=== PATIENT | male | born 2000 | race African-American/Black ===

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

== ENCOUNTER 2018-02-12 18:56 | Emergency (ER) | payer OTHER ==
[~2018-02-12] VITALS: Ht 182.9 cm; Wt 75.3 kg
[2018-02-12 19:08] VITALS: BP 134/70
[2018-02-12] MEDS: IBUPROFEN 600 MG TABLET. PO ONE (19:50)
--- NOTE | 2018-02-13 00:32 | RAD ---
Three-view right third finger radiographs 02/12/2018 CLINICAL HISTORY: Injury to the right third finger with swelling. A PA digital radiograph of the right hand was obtained. Oblique and lateral digital radiographs of the right third finger were obtained. Soft tissue swelling is seen involving the proximal right third finger. No fracture or dislocation of the right third finger is seen. No radiopaque foreign body is noted. IMPRESSION: No fracture or dislocation of the right third finger is seen. Electronically signed by: Adolfo Trejo MD (02/13/2018 12:28 AM) [facility]
--- NOTE | 2018-02-13 23:17 | ED.ADGEN ---
Past History Past Medical History: No Pertinent History, Seizure Past Surgical History: No Surgical History Smoking: Non-smoker Alcohol Use: None Drug Use: None Adult General Chief Complaint Chief Complaint Right middle finger injury HPI HPI Patient is a 16-year-old right-handed -[place] male who presents with right middle finger injury. Patient states he was stabbed in the finger by a basketball earlier this afternoon. Ports tenderness swelling over proximal interphalangeal joint with pain on range of motion. No deformity or malalignment. No other acute complaints.[] Review of Systems Review of Systems All other systems were reviewed and found to be within normal limits, except as documented in this note. Current Medications Current Medications Current Medications Medications (Trade) Dose Ordered Sig/Tatyana Start Time Stop Time Status Last Admin Dose Admin Ibuprofen (Motrin) 600 mg 1X ONCE 02/12/18 20:00 02/12/18 20:01 DC 02/12/18 19:50 600 MG Allergies Allergies Allergies Coded Allergies Type Severity Reaction Last Updated Verified No Known Drug Allergies 07/05/14 No Physical Exam Physical Exam Constitutional: Well developed, well nourished, no acute distress, non-toxic appearance. [] Extremities: Right index finger, tenderness swelling noted over right proximal interphalangeal joint no deformity, malalignment.. [] Neurologic: Alert and oriented X 3, normal motor function, normal sensory function, no focal deficits noted. []] Current Patient Data Vital Signs Vital Signs Date Time Temp Pulse Resp B/P (MAP) Pulse Ox O2 Delivery O2 Flow Rate FiO2 02/12/18 19:08 98.1 80 16 96 Room Air EKG EKG [] Radiology/Procedures Radiology/Procedures [X-ray right fingers: No obvious displaced fracture.] Course & Med Decision Making Course & Med Decision Making Pertinent Labs and Imaging studies reviewed. (See chart for details) [Patient placed in splint for comfort. Recommend supportive care with PCP follow -up.] Final Impression Final Impression [#1 right middle finger injury] Nicolasa Disclaimer Dragon Disclaimer This electronic medical record was generated, in whole or in part, using a voice recognition dictation system. CONCHA GARCIA DO Feb 13, 2018 23:17
== END 2018-02-12 19:43 | disposition home or self-care (01) ==
LOC: ER 18:56
DX: S69.91XA Unspecified injury of right wrist, hand and finger(s), initial encounter (principal); W26.8XXA Contact with other sharp object(s), not elsewhere classified, initial encounter; Y93.67 Activity, basketball; Y92.89 Other specified places as the place of occurrence of the external cause; Y99.8 Other external cause status
CPT/HCPCS: 29130; 73140; 99283

== ENCOUNTER 2018-03-11 11:01 | Emergency (ER) | payer OTHER ==
[~2018-03-11 11:01] MED LIST changes: +ALBU2.5V8 IH; -ALBU8.5H8 IH
[2018-03-11 11:18] VITALS: BP 116/83
[2018-03-11] MEDS ORDERED: IV NORMAL SALINE 1,000ML 1,000 ML IV SCH (11:19)
[2018-03-11] MEDS ORDERED: ONDANSETRON PF 4 MG/2 ML VIAL. IV ONE (11:30)
[2018-03-11 11:40] LABS: BASO % 0 % (0-3); EOS # 0.1 x10^3/uL (0.0-0.7); EOS % 1 % (0-3); HEMATOCRIT 49.1 % (39.0-53.0); HEMOGLOBIN 16.6 g/dL (13.0-17.5); LYMPH # 1.2 x10^3/uL (1.0-4.8); LYMPH % 13 % (24-48); MEAN CORPUSCULAR HEMOGLOBIN 30 pg (25-35); MEAN CORPUSCULAR HGB CONC 34 g/dL (31-37); MEAN CORPUSCULAR VOLUME 87 fL (79-100); MONO # 0.9 x10^3/uL (0.0-1.1); MONO % 10 % (0-9); NEUT # 6.8 x10^3uL (1.8-7.7); NEUT % 76 % (31-73); PLATELET COUNT 256 x10^3/uL (140-400); RED BLOOD COUNT 5.64 x10^6/uL (4.30-5.70); WHITE BLOOD COUNT 9.1 x10^3/uL (4.0-11.0)
[2018-03-11 11:58] LABS: ALBUMIN 4.5 g/dL (3.4-5.0); ALBUMIN/GLOBULIN RATIO 1.1 (1.0-1.7); CALCIUM 9.3 mg/dL (8.5-10.1); CREATININE 1.2 mg/dL (0.7-1.3); GFR 94.4; TOTAL BILIRUBIN 1.6 mg/dL (0.2-1.0); TOTAL PROTEIN 8.5 g/dL (6.4-8.2)
[2018-03-11] MEDS ORDERED: IOHEXOL 300 MG/ML 75 ML VIAL. IV ONE (12:30)
--- NOTE | 2018-03-11 12:55 | RAD ---
PQRS Compliance Statement: One or more of the following individualized dose reduction techniques were utilized for this examination: 1. Automated exposure control 2. Adjustment of the mA and/or kV according to patient size 3. Use of iterative reconstruction technique CT abdomen/pelvis with contrast 03/11/2018 12:27 PM INDICATION: Nausea, vomiting and generalized abdominal pain COMPARISON: None available TECHNIQUE: Multiple axial CT images of the abdomen and pelvis were obtained after the intravenous administration of Isovue-370. Coronal and sagittal reformats are provided. FINDINGS: Visualized portions of the lung bases are clear. Heart size is within normal limits. No suspicious hepatic masses are identified. Liver is homogeneous in enhancement. Spleen, bilateral adrenal glands, and pancreas are normal in appearance. Gallbladder is present without adjacent inflammatory changes. The abdominal aorta is normal in course and caliber. There are no pathologically enlarged lymph nodes in the abdomen and pelvis. There is no abdominal free fluid. There is no free intraperitoneal air. The abdominal aorta is normal in course and caliber. There are no pathologically enlarged lymph nodes in the abdomen and pelvis. There is no abdominal free fluid. There is no free intraperitoneal air. There are dilated small bowel loops measuring up to 3.4 cm. There are no differential air-fluid levels. There is no transition point identified. Dilated small bowel loops predominantly are noted within the proximal small bowel. Terminal ileum appears decompressed. The appendix is not definitively visualized due to the lack of intraperitoneal fat and oral contrast. Urinary bladder is within normal limits given degree of distention. No suspicious pelvic mass is identified. No suspicious osseous abnormality. IMPRESSION: 1. Dilated small bowel loops may represent ileus. No definite evidence for bowel obstruction. No definite transition point is visualized. Consideration may be given for an enteritis. 2. Appendix is not definitively visualized given the lack of intraperitoneal fat and oral contrast. No definite pericecal inflammatory changes are identified. There is persistent clinical concern, a dedicated CT pelvis may be obtained after the administration of oral contrast. Electronically signed by: Yessenia Sanders MD (03/11/2018 12:51 PM) [id number]
[2018-03-11] MEDS ORDERED: DIPH1TAB PO (13:46)
[2018-03-11] MEDS ORDERED: ONDA4TAB7 PO (13:46)
[2018-03-11] MEDS ORDERED: METR500T PO (13:50)
--- NOTE | 2018-03-11 13:50 | PHYS DOC ---
Past History Past Medical History: GERD Past Surgical History: No Surgical History Smoking: Non-smoker Alcohol Use: None Drug Use: None Adult General Chief Complaint Chief Complaint: ABDOMINAL PAIN HPI HPI Patient is a 17-year-old male who presents with complaint of lower abdominal pain with nausea and with diarrhea. Patient states he has not actually vomited. He states that he has had several watery stools since symptoms started yesterday. He denies any fever. Does indicate that his appetite has gone down and states the pain is worsened when he stands up straight. Patient states that nothing is improving his symptoms. Review of Systems Review of Systems Constitutional: Denies fever or chills [] Respiratory: Denies cough or shortness of breath [] Cardiovascular: No additional information not addressed in HPI [] GI: Complains of abdominal pain with nausea and diarrhea [] : Denies dysuria or hematuria [] Musculoskeletal: Denies back pain or joint pain [] All other systems were reviewed and found to be within normal limits, except as documented in this note. Current Medications Current Medications Current Medications Medications (Trade) Dose Ordered Sig/Tatyana Start Time Stop Time Status Last Admin Dose Admin Fentanyl Citrate (Fentanyl 2ml Vial) 25 mcg 1X ONCE 03/11/18 11:30 03/11/18 11:31 DC 03/11/18 11:38 25 MCG Iohexol (Omnipaque 300 Mg/ml) 75 ml 1X ONCE 03/11/18 12:30 03/11/18 12:31 DC 03/11/18 12:31 75 ML Ondansetron HCl (Zofran) 4 mg 1X ONCE 03/11/18 11:30 03/11/18 11:31 DC 03/11/18 11:38 4 MG Sodium Chloride 1,000 ml @ 1,000 mls/hr Q1H 03/11/18 11:19 03/11/18 12:19 DC 03/11/18 11:40 1,000 MLS/HR Allergies Allergies Allergies Coded Allergies Type Severity Reaction Last Updated Verified No Known Drug Allergies 07/05/14 No Physical Exam Physical Exam Constitutional: Well developed, well nourished, no acute distress, non-toxic appearance. [] HENT: Normocephalic, atraumatic, bilateral external ears normal, oropharynx moist, no oral exudates, nose normal. [] Eyes: PERRLA, EOMI, conjunctiva normal, no discharge. [] Neck: Normal range of motion, no tenderness, supple, no stridor. [] Cardiovascular: Regular rate and rhythm [] Lungs & Thorax: Bilateral breath sounds clear to auscultation [] Abdomen: Bowel sounds normal, soft, with lower abdominal tenderness, left greater than right. [] Skin: Warm, dry, no erythema, no rash. [] Extremities: No tenderness, no cyanosis, no clubbing, ROM intact, no edema. [] Neurologic: Alert and oriented X 3, normal motor function, normal sensory function, no focal deficits noted. [] Current Patient Data Vital Signs Vital Signs Date Time Temp Pulse Resp B/P (MAP) Pulse Ox O2 Delivery O2 Flow Rate FiO2 03/11/18 11:18 98.5 72 18 98 Room Air Lab Results Laboratory Tests Test 03/11/18 11:29 White Blood Count 9.1 x10^3/uL (4.0-11.0) Red Blood Count 5.64 x10^6/uL (4.30-5.70) Hemoglobin 16.6 g/dL (13.0-17.5) Hematocrit 49.1 % (39.0-53.0) Mean Corpuscular Volume 87 fL (79-100) Mean Corpuscular Hemoglobin 30 pg (25-35) Mean Corpuscular Hemoglobin Concent 34 g/dL (31-37) Red Cell Distribution Width 13.0 % (11.5-14.5) Platelet Count 256 x10^3/uL (140-400) Neutrophils (%) (Auto) 76 % (31-73) H Lymphocytes (%) (Auto) 13 % (24-48) L Monocytes (%) (Auto) 10 % (0-9) H Eosinophils (%) (Auto) 1 % (0-3) Basophils (%) (Auto) 0 % (0-3) Neutrophils # (Auto) 6.8 x10^3uL (1.8-7.7) Lymphocytes # (Auto) 1.2 x10^3/uL (1.0-4.8) Monocytes # (Auto) 0.9 x10^3/uL (0.0-1.1) Eosinophils # (Auto) 0.1 x10^3/uL (0.0-0.7) Basophils # (Auto) 0.0 x10^3/uL (0.0-0.2) Sodium Level 139 mmol/L (136-145) Potassium Level 4.0 mmol/L (3.5-5.1) Chloride Level 103 mmol/L (98-107) Carbon Dioxide Level 26 mmol/L (21-32) Anion Gap 10 (6-14) Blood Urea Nitrogen 15 mg/dL (8-26) Creatinine 1.2 mg/dL (0.7-1.3) Estimated GFR (Cockcroft-Gault) 94.4 BUN/Creatinine Ratio 13 (6-20) Glucose Level 89 mg/dL (70-99) Calcium Level 9.3 mg/dL (8.5-10.1) Total Bilirubin 1.6 mg/dL (0.2-1.0) H Aspartate Amino Transferase (AST) 12 U/L (15-37) L Alanine Aminotransferase (ALT) 17 U/L (16-63) Alkaline Phosphatase 120 U/L (46-116) H Total Protein 8.5 g/dL (6.4-8.2) H Albumin 4.5 g/dL (3.4-5.0) Albumin/Globulin Ratio 1.1 (1.0-1.7) Lipase 77 U/L (73-393) EKG EKG [] Radiology/Procedures Radiology/Procedures [] Impressions: PROCEDURE: CT ABD PELV W/ IV CONTRST ONLY PQRS Compliance Statement: One or more of the following individualized dose reduction techniques were utilized for this examination: 1. Automated exposure control 2. Adjustment of the mA and/or kV according to patient size 3. Use of iterative reconstruction technique CT abdomen/pelvis with contrast 03/11/2018 12:27 PM INDICATION: Nausea, vomiting and generalized abdominal pain COMPARISON: None available TECHNIQUE: Multiple axial CT images of the abdomen and pelvis were obtained after the intravenous administration of Isovue-370. Coronal and sagittal reformats are provided. FINDINGS: Visualized portions of the lung bases are clear. Heart size is within normal limits. No suspicious hepatic masses are identified. Liver is homogeneous in enhancement. Spleen, bilateral adrenal glands, and pancreas are normal in appearance. Gallbladder is present without adjacent inflammatory changes. The abdominal aorta is normal in course and caliber. There are no pathologically enlarged lymph nodes in the abdomen and pelvis. There is no abdominal free fluid. There is no free intraperitoneal air. The abdominal aorta is normal in course and caliber. There are no pathologically enlarged lymph nodes in the abdomen and pelvis. There is no abdominal free fluid. There is no free intraperitoneal air. There are dilated small bowel loops measuring up to 3.4 cm. There are no differential air-fluid levels. There is no transition point identified. Dilated small bowel loops predominantly are noted within the proximal small bowel. Terminal ileum appears decompressed. The appendix is not definitively visualized due to the lack of intraperitoneal fat and oral contrast. Urinary bladder is within normal limits given degree of distention. No suspicious pelvic mass is identified. No suspicious osseous abnormality. IMPRESSION: 1. Dilated small bowel loops may represent ileus. No definite evidence for bowel obstruction. No definite transition point is visualized. Consideration may be given for an enteritis. 2. Appendix is not definitively visualized given the lack of intraperitoneal fat and oral contrast. No definite pericecal inflammatory changes are identified. There is persistent clinical concern, a dedicated CT pelvis may be obtained after the administration of oral contrast. Electronically signed by: Yessenia Sanders MD (03/11/2018 12:51 PM) [id number] Course & Med Decision Making Course & Med Decision Making Pertinent Labs and Imaging studies reviewed. (See chart for details) [] Dragon Disclaimer Dragon Disclaimer This electronic medical record was generated, in whole or in part, using a voice recognition dictation system. Departure Departure: Impression: Primary Impression: Enteritis Disposition: 01 HOME, SELF-CARE Condition: STABLE Referrals: JOHN GIRON MD (PCP) Patient Instructions: Diarrhea Scripts Metronidazole (FLAGYL) 500 Mg Tablet 500 MG PO TID for infection, #30 TAB Prov: CHICHI KING Jr. DO 03/11/18 Diphenoxylate Hcl/Atropine (LOMOTIL TABLET) 1 Each Tablet 1 TAB PO TID PRN for DIARRHEA, #30 TAB Prov: CHICHI KING Jr. DO 03/11/18 Ondansetron Hcl (ZOFRAN) 4 Mg Tablet 1 TAB PO Q8HRS PRN for NAUSEA/VOMITING, #12 TAB Prov: CHICHI KING Jr. DO 03/11/18 CHICHI KING Jr. DO Mar 11, 2018 13:50
== END 2018-03-11 14:03 | disposition home or self-care (01) ==
LOC: ER 11:01
DX: K52.9 Noninfective gastroenteritis and colitis, unspecified (principal); K21.9 Gastro-esophageal reflux disease without esophagitis
CPT/HCPCS: 36415; 74177; 80053; 83690; 85025; 96361; 96374; 96375; 99284; J2405; J3010; Q9967; J7030

== ENCOUNTER 2018-11-12 21:24 | Emergency (ER) | payer OTHER ==
[~2018-11-12] VITALS: Ht 182.9 cm; Wt 78.2 kg
[~2018-11-12 21:24] MED LIST changes: +DIPH1TAB PO; +METR500T PO; +ONDA4TAB7 PO
--- NOTE | 2018-11-12 21:47 | PHYS DOC ---
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 no med comlpaints just needs work note to go [facility] to work Allergies Allergies Allergies Coded Allergies Type Severity Reaction Last Updated Verified No Known Drug Allergies 07/05/14 No Physical Exam Physical Exam Constitutional: Well developed, well nourished, no acute distress, non-toxic appearance. [] HENT: Normocephalic, atraumatic, bilateral external ears normal, oropharynx mois t, no oral exudates, nose normal. [] Eyes: PERRLA, EOMI, conjunctiva normal, no discharge. [] Neck: Normal range of motion, no tenderness, supple, no stridor. [] Cardiovascular:Heart rate regular rhythm, no murmur [] Lungs & Thorax: Bilateral breath sounds clear to auscultation [] Back: No tenderness, no CVA tenderness. [] Extremities: No tenderness, no cyanosis, no clubbing, ROM intact, no edema. [] Neurologic: Alert and oriented X 3, normal motor function, normal sensory function, no focal deficits noted. [] Psychologic: Affect normal, judgement normal, mood normal. [] Current Patient Data Vital Signs going out of state to moss picker son. states is not having any pain or medical problems currently. Distress * None Blood Pressure Systolic * 126 mm Hg (100-140) Blood Pressure Diastolic * 64 mm Hg (60-100) Blood Pressure Mean * 84 mm Hg Blood Pressure Location * Right Arm Blood Pressure Source * Automatic Cuff Pulse Rate * 74 beats per minute (60-90) Pulse Assessment Method * Monitor Respiratory Rate * 18 breaths per minute (12-24) Oxygen Delivery Method * Room Air Bedside Pulse Oximetry * 99 % Treatment Prior to Arrival * No Complaint of Pain * No LOC EKG EKG [] Radiology/Procedures Radiology/Procedures [] Course & Med Decision Making Course & Med Decision Making Pertinent Labs and Imaging studies reviewed. (See chart for details) [] Dragon Disclaimer Dragon Disclaimer This electronic medical record was generated, in whole or in part, using a voice recognition dictation system. Departure Departure: Impression: Primary Impression: Parenting problem Disposition: 01 HOME, SELF-CARE Condition: STABLE Additional Instructions: Thank you for coming to the emergency department. your blood pressure is normal everything is looking good you are free to go back to work anytime ZEV JONES MD Nov 12, 2018 21:47
== END 2018-11-12 21:47 | disposition home or self-care (01) ==
LOC: ER 21:24
DX: Z62.9 Problem related to upbringing, unspecified (principal); K21.9 Gastro-esophageal reflux disease without esophagitis
CPT/HCPCS: 99281

== ENCOUNTER 2019-04-16 00:19 | Emergency (ER) | payer OTHER ==
[~2019-04-16] VITALS: Ht 182.9 cm; Wt 78.2 kg
[2019-04-16] MEDS ORDERED: IV NORMAL SALINE 1,000ML 1,000 ML IV SCH (00:29)
[2019-04-16] MEDS ORDERED: ONDANSETRON PF 4 MG/2 ML VIAL. IVP ONE (00:30)
[2019-04-16] MEDS ORDERED: MORPHINE SULFATE 4 MG/ML DISP.SYRIN. IV/SQ PRN (00:30)
--- NOTE | 2019-04-16 00:32 | PHYS DOC ---
Past History Past Medical History: No Pertinent History Past Surgical History: No Surgical History Smoking: Non-smoker Alcohol Use: None Drug Use: None Adult General Chief Complaint Chief Complaint: ABDOMINAL PAIN HPI HPI Patient is a 18-year-old male who presents with complaint of lower abdominal pain that started earlier this morning. Patient states that pain is progressively gotten worse throughout the night. He rates pain at a 7 out of 10. He states he has been nauseated and has had a little bit of diarrhea. He denies any fever. He does indicate that he has decreased appetite. He states the pain is worsened with movement and walking. He states that nothing is improving his symptoms.[] Review of Systems Review of Systems Constitutional: Denies fever or chills [] Respiratory: Denies cough or shortness of breath [] Cardiovascular: No additional information not addressed in HPI [] GI: Complains of lower abdominal pain with nausea and diarrhea [] Integument: Denies rash or skin lesions [] Neurologic: Denies headache, focal weakness or sensory changes [] All other systems were reviewed and found to be within normal limits, except as documented in this note. Allergies Allergies Allergies Coded Allergies Type Severity Reaction Last Updated Verified No Known Drug Allergies 07/05/14 No Physical Exam Physical Exam Constitutional: Well developed, well nourished, no acute distress, non-toxic appearance. [] HENT: Normocephalic, atraumatic, bilateral external ears normal, oropharynx moist, no oral exudates, nose normal. [] Eyes: PERRLA, EOMI, conjunctiva normal, no discharge. [] Neck: Normal range of motion, no tenderness, supple, no stridor. [] Cardiovascular:Heart rate regular rhythm, no murmur [] Lungs & Thorax: Bilateral breath sounds clear to auscultation [] Abdomen: Bowel sounds normal, soft, with diffuse tenderness. [] Skin: Warm, dry, no erythema, no rash. [] Extremities: No tenderness, no cyanosis, no clubbing, ROM intact, no edema. [] Neurologic: Alert and oriented X 3, no focal deficits noted. [] Current Patient Data Vital Signs Vital Signs Date Time Temp Pulse Resp B/P (MAP) Pulse Ox O2 Delivery O2 Flow Rate FiO2 04/16/19 00:20 99.0 94 18 152/102 (119) 97 Room Air EKG EKG [] Radiology/Procedures Radiology/Procedures [] Impressions: PROCEDURE: CT ABD PELV W/ IV CONTRST ONLY EXAM: CT Abdomen and Pelvis with IV contrast CLINICAL HISTORY: Abdominal pain, nausea. COMPARISON: 03/11/2018 TECHNIQUE: Helical CT of the abdomen and pelvis was performed following the administration of intravenous contrast. Axial, coronal and sagittal reformatted images were generated. PQRS compliance statement - One or more of the following individualized dose reduction techniques were utilized for this study: 1. Automated exposure control 2. Adjustment of the mA and/or kV according to patient size 3. Use of iterative reconstruction technique FINDINGS: Lower chest: Lung bases are clear. Abdomen and Pelvis: Focal low-attenuation along the falx from ligament likely focal fatty infiltration. Gallbladder is normal. No biliary ductal dilatation. Spleen is unremarkable. Adrenal glands are normal. Pancreas is unremarkable. Symmetric nephrograms. No focal renal lesion. No hydronephrosis. No hydroureter. Bladder is unremarkable. No small or large bowel dilatation. No evidence for bowel obstruction. Moderate colonic stool content is seen. Distention of the stomach likely from recent injection. Appendix is normal. Prominent to borderline enlarged mesenteric lymph nodes are seen, possibly reactive. No abdominal pelvic ascites. Aorta is normal in caliber. Bones: No aggressive osseous lesion. IMPRESSION: 1. Focal low-attenuation along falciform ligament likely focal fatty infiltration. 2. No bowel obstruction. 3. Prominent to borderline enlarged mesenteric lymph nodes are seen, possibly reactive. Electronically signed by: Saqib Mark MD (04/16/2019 1:40 AM) [facility] Course & Med Decision Making Course & Med Decision Making Pertinent Labs and Imaging studies reviewed. (See chart for details) [] Dragon Disclaimer Dragon Disclaimer This electronic medical record was generated, in whole or in part, using a voice recognition dictation system. Departure Departure: Impression: Primary Impression: Abdominal pain, generalized Additional Impression: Mesenteric adenitis Disposition: 01 HOME, SELF-CARE Condition: STABLE Referrals: JOHN GIRON MD (PCP) Patient Instructions: Abdominal Pain, Mesenteric Adenitis Scripts Ondansetron (ONDANSETRON ODT) 4 Mg Tab.rapdis 1 TAB PO PRN Q6-8HRS PRN for NAUSEA, #12 TAB Prov: CHICHI KING Jr. DO 04/16/19 Hydrocodone Bit/Acetaminophen (NORCO 5-325 TABLET) 1 Each Tablet 1 TAB PO PRN Q6HRS PRN for PAIN, #12 TAB 0 Refills Prov: CHICHI KING Jr. DO 04/16/19 Problem Qualifiers CHICHI KING Jr. DO Apr 16, 2019 00:32
[2019-04-16 00:50] LABS: BASO % 0 % (0-3); EOS # 0.2 x10^3/uL (0.0-0.7); EOS % 1 % (0-3); HEMATOCRIT 46.3 % (39.0-53.0); HEMOGLOBIN 15.3 g/dL (13.0-17.5); LYMPH # 1.1 x10^3/uL (1.0-4.8); LYMPH % 9 % (24-48); MEAN CORPUSCULAR HEMOGLOBIN 29 pg (25-35); MEAN CORPUSCULAR HGB CONC 33 g/dL (31-37); MEAN CORPUSCULAR VOLUME 87 fL (79-100); MONO # 0.8 x10^3/uL (0.0-1.1); MONO % 6 % (0-9); NEUT # 11.2 x10^3uL (1.8-7.7); NEUT % 84 % (31-73); PLATELET COUNT 262 x10^3/uL (140-400); RED BLOOD COUNT 5.32 x10^6/uL (4.30-5.70); WHITE BLOOD COUNT 13.3 x10^3/uL (4.0-11.0)
[2019-04-16 00:59] LABS: CALCIUM 8.6 mg/dL (8.5-10.1); CREATININE 1.1 mg/dL (0.7-1.3); GFR 103.3; POTASSIUM 3.6 mmol/L (3.5-5.1)
[2019-04-16] MEDS ORDERED: CONTRAST GIVEN MC PRN (01:00)
[2019-04-16] MEDS ORDERED: IOHEXOL 300 MG/ML 75 ML VIAL. IV ONE (01:00)
[2019-04-16 01:05] LABS: ALBUMIN 3.7 g/dL (3.4-5.0); TOTAL BILIRUBIN 1.2 mg/dL (0.2-1.0); TOTAL PROTEIN 7.4 g/dL (6.4-8.2)
--- NOTE | 2019-04-16 01:44 | RAD ---
EXAM: CT Abdomen and Pelvis with IV contrast CLINICAL HISTORY: Abdominal pain, nausea. COMPARISON: 03/11/2018 TECHNIQUE: Helical CT of the abdomen and pelvis was performed following the administration of intravenous contrast. Axial, coronal and sagittal reformatted images were generated. PQRS compliance statement - One or more of the following individualized dose reduction techniques were utilized for this study: 1. Automated exposure control 2. Adjustment of the mA and/or kV according to patient size 3. Use of iterative reconstruction technique FINDINGS: Lower chest: Lung bases are clear. Abdomen and Pelvis: Focal low-attenuation along the falx from ligament likely focal fatty infiltration. Gallbladder is normal. No biliary ductal dilatation. Spleen is unremarkable. Adrenal glands are normal. Pancreas is unremarkable. Symmetric nephrograms. No focal renal lesion. No hydronephrosis. No hydroureter. Bladder is unremarkable. No small or large bowel dilatation. No evidence for bowel obstruction. Moderate colonic stool content is seen. Distention of the stomach likely from recent injection. Appendix is normal. Prominent to borderline enlarged mesenteric lymph nodes are seen, possibly reactive. No abdominal pelvic ascites. Aorta is normal in caliber. Bones: No aggressive osseous lesion. IMPRESSION: 1. Focal low-attenuation along falciform ligament likely focal fatty infiltration. 2. No bowel obstruction. 3. Prominent to borderline enlarged mesenteric lymph nodes are seen, possibly reactive. Electronically signed by: Saqib Mark MD (04/16/2019 1:40 AM) [facility]
[2019-04-16 01:50] LABS: BACTERIA,URINE 0 /HPF (0-FEW); BILIRUBIN,URINE NEG (NEG); CLARITY,URINE CLEAR; COLOR,URINE YELLOW; GLUCOSE,URINE NEG (NEG); NITRITE,URINE NEG (NEG); RBC,URINE 0 /HPF (0-2); SQUAMOUS EPITHELIAL CELL,UR OCC /LPF; WBC,URINE OCC /HPF (0-4)
[2019-04-16] MEDS ORDERED: HYDR-3165 PO (02:26)
[2019-04-16] MEDS ORDERED: ONDA4TAB12 PO (02:26)
[2019-04-16 02:30] VITALS: BP 103/55
== END 2019-04-16 02:30 | disposition home or self-care (01) ==
LOC: ER 00:19
DX: I88.0 Nonspecific mesenteric lymphadenitis (principal); R10.30 Lower abdominal pain, unspecified; R19.7 Diarrhea, unspecified; R11.0 Nausea
CPT/HCPCS: 36415; 74177; 80053; 81001; 85025; 96361; 96374; 96375; 99285; J2270; J2405; Q9967; J7030

== ENCOUNTER 2019-06-25 17:11 | Emergency (ER) | payer OTHER ==
[~2019-06-25] VITALS: Ht 182.9 cm; Wt 84.8 kg
[~2019-06-25 17:11] MED LIST changes: +HYDR-3165 PO; +ONDA4TAB12 PO
[2019-06-25 17:30] VITALS: BP 127/79
--- NOTE | 2019-06-25 18:27 | PHYS DOC ---
Past History Past Medical History: No Pertinent History Past Surgical History: No Surgical History Smoking: Non-smoker Alcohol Use: None Drug Use: None General Adult EDM: Chief Complaint: COUGH HPI: HPI: Patient is a 18-year-old male who presents secondary to complaint of not feeling well for the past 2 days. He complains of a cough, some increased shortness of breath, and a headache. 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 He reports that he was told to come to the ER for evaluation and a work release if needed. He denies chest pain. No medications taken prior to arrival. Review of Systems: Review of Systems: All other systems negative except as documented in HPI Heart Score: Risk Factors: Risk Factors: DM, Current or recent (<one month) smoker, HTN, HLP, family history of CAD, obesity. Risk Scores: Score 0 - 3: 2.5% MACE over next 6 weeks - Discharge Home Score 4 - 6: 20.3% MACE over next 6 weeks - Admit for Clinical Observation Score 7 - 10: 72.7% MACE over next 6 weeks - Early Invasive Strategies Allergies: Allergies: Allergies Coded Allergies Type Severity Reaction Last Updated Verified No Known Drug Allergies 07/05/14 No Physical Exam: PE: Constitutional: Well developed, well nourished, no acute distress, non-toxic appearance. [] HENT: Normocephalic, atraumatic, bilateral external ears normal, oropharynx moist, no oral exudates, nose normal. [] Eyes: PERRLA, EOMI, conjunctiva normal, no discharge. [] Neck: Normal range of motion, no tenderness, supple, no stridor. [] Cardiovascular:Heart rate regular rhythm, no murmur [] Lungs & Thorax: Bilateral breath sounds clear to auscultation [] Abdomen: Bowel sounds normal, soft, no tenderness, no masses, no pulsatile masses. [] Skin: Warm, dry, no erythema, no rash. [] Back: No tenderness, no CVA tenderness. [] Extremities: No tenderness, no cyanosis, no clubbing, ROM intact, no edema. [] Neurologic: Alert and oriented X 3, normal motor function, normal sensory function, no focal deficits noted. [] Psychologic: Affect normal, judgement normal, mood normal. [] Current Patient Data: Vital Signs: Vital Signs Date Time Temp Pulse Resp B/P (MAP) Pulse Ox O2 Delivery O2 Flow Rate FiO2 06/25/19 17:30 98.0 80 22 127/79 (95) 96 EKG: EKG: [] Radiology/Procedures: Radiology/Procedures: [] Course & Med Decision Making: Course & Med Decision Making This patient was seen and evaluated for symptoms consistent with coronavirus with positive exposure at place of work. Patient's vital signs are stable at this time and no treatment or hospitalization is indicated. During examination appropriate PPE was worn by myself and nursing staff. Patient was given return precautions including increasing shortness of breath. At this time no further treatment will be provided as the patient is stable. He is recommended to take Tylenol for body aches and fever. I will provide a work note for the next 2 weeks Nicolasa Disclaimer: Nicolasa Disclaimer: This electronic medical record was generated, in whole or in part, using a voice recognition dictation system. Departure Departure: Impression: Primary Impression: Suspected COVID-19 virus infection Additional Impressions: Cough Headache Disposition: 01 HOME, SELF-CARE Condition: STABLE Referrals: JOHN GIRON MD (PCP) Please return to the ED for worsening shortness of breath TAYLER RIDER DO Jun 25, 2019 18:27
== END 2019-06-25 19:05 | disposition home or self-care (01) ==
LOC: ER 17:11
DX: Z03.818 Encounter for observation for suspected exposure to other biological agents ruled out (principal); R05 Cough; R51 Headache
CPT/HCPCS: 99282